=== PATIENT | male | born 1990 | race Caucasian/White ===

== ENCOUNTER 2016-04-03 16:55 | Inpatient (IN) | payer OTHER ==
[~2016-04-03] VITALS: Ht 182.9 cm; Wt 72.6 kg
--- NOTE | ~2016-04-03 | PR ---
[place], [place] PROGRESS NOTE NAME: SIDRA DEVLIN UNIT #: [id number] ROOM: 502 DOCTOR: EL MEIER MD BIRTHDATE: [birth year] DOS: 04/05/2016 SUBJECTIVE: The patient was seen at his bedside in the Intensive Care Unit on 04/05/2016. He was sleeping and lying flat. He still states that he is still feeling very achy, but things seem to be improving. His renal function certainly are improving. An echocardiogram done on 04/04/2016 showed normal left ventricular size with mild global left ventricular hypokinesis, left ventricular systolic function was mildly decreased with an ejection fraction of about 45-50%. The left ventricular filling pattern was normal for the patient's age. The right atrium and right ventricle were dilated with a right ventricular hypokinesis. Mild tricuspid insufficiency was seen. Right ventricular systolic pressures were elevated between 40 and 45 mmHg. The IVC was dilated with decreased respiratory variation indicating elevated central venous pressures. PHYSICAL EXAMINATION: VITAL SIGNS: He is arousable, but lethargic, pulse is 61 and regular, blood pressure is 142/68. He is afebrile, but he did have a temperature of 100.3 earlier. He weighs 72.6 kilograms with a body mass index 21.7. NECK: Supple. He has no jugular distention today. Carotids are full. LUNGS: Respirations are unlabored. His chest has decreased breath sounds at the bases. HEART: Regular rhythm with a fourth heart sound, but no third heart sound. ABDOMEN: Soft and normoactive. EXTREMITIES: Showed no edema. Muscles are tender to palpation. IMPRESSION: 1. Acute drug intoxication, most likely due to a combination of alcohol, marijuana and cocaine. 2. Rhabdomyolysis due to prolonged immobility after the patient lost consciousness. 3. Pneumonia due to aspiration. 4. Elevated troponin levels due to cocaine-induced myocardial injury. 5. Decreased left ventricular systolic function, likely due to cocaine-induced cardiac injury. PLAN: We will continue supportive care. We must avoid beta blockers since he does have a history of cocaine exposure. For now, we will continue to observe him without any medical management, but if his left ventricular function continues to deteriorate and if he remains free of drugs, we can consider starting beta blockers and DEBORA inhibitors in the future. We thank the hospitalist physicians for asking our advice regarding his care. [place], [place] PROGRESS NOTE NAME: SIDRA DEVLIN UNIT #: [id number] ROOM: 502 DOCTOR: EL MEIER MD BIRTHDATE: [birth year] EL MEIER MD CM:PNTRANS 37 EL MEIER MD 04/05/161937 interface
--- NOTE | ~2016-04-03 | CON ---
[place], [place] REPORT OF CONSULTATION NAME: SIDRA DEVLIN UNIT #: [id number] ROOM: [place] [address] DOCTOR: EL MEIER MD BIRTHDATE: [birth year] DOS: 04/04/2016 CARDIOLOGY CONSULTATION REASON FOR CONSULTATION: Elevated troponin level. HISTORY OF PRESENT ILLNESS: The patient is a 25-year-old man who does have a history of multiple drug abuse. He was brought into the hospital by family after he spent the night at a friend's house on . He reportedly became significantly intoxicated and blacked out. He also does admit to consuming "a lot" of cocaine. At his sister's home, he complained of total body pain especially involving his head and right ear. He had a lump on the back of his head. The patient could not recall any of the details of the night after midnight. In the hospital, a CAT scan of the chest did show a right lower lobe pneumonia, a head CT showed no intracranial process, a maxillofacial CT showed no fractures, a CT of the cervical spine showed no acute process. His toxicology report was positive for cocaine and cannabinoid metabolites. He was negative for barbiturates, opioids, and alcohol. Laboratory studies did show a marked elevation in CPK, which has continued to decline since his admission. On admission, the CPK was 15,175, this morning it is 24,486. Troponin levels have also been high. On admission, it was 1.050, today it is 3.310. The patient's blood work does also indicate signs of malnutrition with an albumin level of 2.9. He does show poor tissue perfusion with a lactic acid level of 2.4. Creatinine on admission was elevated at 2.16, but has improved to 1.31. PAST MEDICAL HISTORY: Includes, 1. History of multiple drug abuse. 2. No previous history of heart attack, stroke, diabetes, myocardial infarction, elevated lipids, or heart murmur. 3. The patient had a tonsillectomy and had myringotomy tubes placed twice. REVIEW OF SYSTEMS: The patient denies diplopia or loss of vision. He does admit to total body myalgias. He denies any focal weakness. He denies any loss of vision. He did have nausea and vomiting prior to admission. He denies fevers or chills. He denies any recent weight change. He denies any hot or swollen joints. He denies polydipsia or polyuria. He denies heat or cold intolerance. He denies bleeding from any site. He denies any change in his urine. He denies any blood in his stools. He denies any change in bowel or bladder habits. He denies any peripheral edema. The remainder of the review of systems is negative except as noted above. FAMILY HISTORY: Positive for hypertension. SOCIAL HISTORY: The patient lives with his sister. He does have a history of heroin use, but has been clean for several months. He does smoke and drink alcohol. PHYSICAL EXAMINATION: GENERAL: The patient is a slender white male who is awake, alert and oriented. He does appear to be uncomfortable. [place], [place] REPORT OF CONSULTATION NAME: SIDRA DEVLIN UNIT #: [id number] ROOM: [place] [address] DOCTOR: EL MEIER MD BIRTHDATE: [birth year] VITAL SIGNS: Pulse is 86 and regular, blood pressure is 110/60. He is afebrile. HEENT: Normocephalic, atraumatic. Extraocular muscles are intact. Sclerae are clear. Pupils are equal, round and reactive to light. The oral mucosa is moist. Tongue is midline. NECK: Supple. He has no jugular distention. Carotids are full. I heard no bruits. He had no neck or supraclavicular masses. LUNGS: Respirations are unlabored. He does have crackles at the right base. His chest is tender to palpation diffusely. He has no presacral edema. CARDIOVASCULAR: His heart has a regular rhythm with a fourth heart sound, but no third heart sound or murmur. The PMI is not displaced. He does have mild hepatojugular reflux. ABDOMEN: Soft and normally active without masses, organomegaly, bruits or tenderness. EXTREMITIES: Showed no edema. Peripheral pulses are palpable in the feet. LABORATORY DATA: I reviewed his electrocardiogram, which shows sinus rhythm and is a normal tracing. There are no acute ST or T-wave changes. IMPRESSION: 1. Presentation with acute drug intoxication, most likely due to a combination of alcohol, marijuana, and cocaine. 2. Rhabdomyolysis, possibly due to prolonged immobility after the patient lost consciousness. 3. Pneumonia, most likely due to aspiration. 4. Elevated troponin levels, probably due to cocaine-induced myocardial injury. Thus far, the patient does not show any signs of arrhythmias; however, he does have elevated jugular venous pressures suggesting that he may have some degree of cardiac dysfunction. PLAN: For now, we will continue supportive care. We will check an echocardiogram for left ventricular function. We will avoid beta blockers. The patient was strongly encouraged to avoid illegal drugs, especially cocaine. [facility] and I thank the hospitalist physicians for asking our advice regarding his care. EL MEIER MD CM:CONSTR:REPORT OF CONSULTATION 1018 04/04/16 1811 interface
--- NOTE | ~2016-04-03 | CON ---
[place], [place] REPORT OF CONSULTATION NAME: SIDRA DEVLIN UNIT #: [id number] ROOM: [place] [address] DOCTOR: NGUYEN CALDERON MD BIRTHDATE: [birth year] DOS: 04/04/2016 REASON FOR CONSULTATION: Acute kidney injury. HISTORY OF PRESENT ILLNESS: The patient is a 25-year-old male. He presented to the hospital following a fall. Apparently, he was drinking and he was down for quite some time. He believes he hit his head because he had some pain in the back of his neck and back area. The patient does not appear to have any past medical history from what I can gather. He does have a history of drug abuse in the past according to the notes. When he presented, he had some abnormal laboratory data that included a creatinine of 2.2. Potassium 6.4. He also had a white count that was elevated at 19,000 and alcohol level was negative. A tox screen was positive for cocaine and cannabinoids and the lactic acid was elevated as well at 4.6. He also had a CK level that was over 15,000. He was started on IV fluids and admitted to the Intensive Care Unit. I was called this morning, but the patient's labs gave instructions to recheck labs and give Kayexalate as his potassium was over 5.8. His creatinine actually has improved and he was urinating quite a bit. His creatinine this morning was 1.3. His last CK level was 21,182. It seems his peak was nearly 25,000. The patient actually was asking me if he can go home soon. He denied having any kidney issues. Denied chronic kidney disease, nausea, vomiting or diarrhea presently. He does have some muscle aches and pain still. ALLERGIES: Listed to RED DYE. MEDICATIONS: None. PAST MEDICAL HISTORY: Tobacco and opioid abuse. Ear tube placement, tonsillectomy and adenoidectomy. FAMILY HISTORY: Positive for hypertension, otherwise noncontributory. SOCIAL HISTORY: Does have a history of alcohol and illicit drugs and smoking. REVIEW OF SYSTEMS: As per HPI, otherwise a 10-point review of systems was reviewed and was negative. PHYSICAL EXAMINATION: VITAL SIGNS: His temperature 99.7, pulse 86, respirations 19, and blood pressure 110/60. GENERAL: He is alert, awake, oriented x 3, no acute distress. HEENT: Shows no jugular venous distention. Sclerae are anicteric. Mucous membranes are moist. Pharynx is clear. NECK: Supple. Trachea is midline. There is no neck lymphadenopathy. There is no thyromegaly. LUNGS: Clear. No crackles, wheezes or rales. No tactile fremitus. He is not using accessory muscles of respiration. HEART: Normal S1, S2. No rub, no thrill or gallop. ABDOMEN: Soft and nontender. There is no organomegaly or rigidity. There is no rebound or guarding. There is no CVA tenderness. [place], [place] REPORT OF CONSULTATION NAME: SIDRA DEVLIN UNIT #: [id number] ROOM: [place] [address] DOCTOR: NGUYEN CALDERON MD BIRTHDATE: [birth year] EXTREMITIES: Had no edema. There is no lower extremity lymphadenopathy. Distal pulses are 2+. SKIN: Showed no rash. There is no petechiae or purpura. Skin temperature was warm. NEUROLOGICAL: He is awake, alert, and following commands. Cranial nerves intact. DIAGNOSTIC DATA: Hemoglobin 12.9, white count of 15.3, platelets of 116, last CK of 21,642, hemoglobin 12.9, white count of 15.3, platelets 116. Magnesium 2.3, BUN 24, creatinine 1.3, calcium 7.5, albumin of 2.9, carbon dioxide 24, potassium 4.2, sodium 140. Troponin I was noted to be 3.09. Lactic acid was within normal limits. IMAGING: CT scan was noted without contrast showed no acute findings. There was comment of fluffy alveolar airspace disease in the right lung. ASSESSMENT AND PLAN: 1. Acute kidney injury with an unclear baseline creatinine. The patient may have acute kidney injury related to prerenal factors with possible element of rhabdomyolysis induced acute tubular necrosis, although his creatinine is improving with volume. 2. Hyperkalemia, which is improving. 3. Possible aspiration pneumonia. 4. Rhabdomyolysis, likely multifactorial etiology, which may be related to cocaine and recent fall with prolonged downtime in the setting of alcohol consumption. 5. Elevated LFTs. 6. Elevated troponin, which may be related to recent cocaine use. 7. History of substance abuse. PLAN: 1. Continue IV fluids. Consider bicarbonate drip if the patient's CK levels do not show improvement. He does not have an acidosis, however, this can be considered to alkalinize the urine; however, if this is chosen, please avoid metabolic alkalosis. For now normal saline is sufficient. 2. Continue to trend labs. Recheck CK level, BUN, creatinine, and potassium levels. Check a phosphorus level. 3. Dose meds for current creatinine clearance. 4. Antibiotics per the primary service. 5. Continue ongoing supportive care. Thank you for this consultation. We will follow with you. [place], [place] REPORT OF CONSULTATION NAME: SIDRA DEVLIN UNIT #: [id number] ROOM: [place] [address] DOCTOR: NGUYEN CALDERON MD BIRTHDATE: [birth year] NGUYEN CALDERON MD CM:CONSTR:REPORT OF CONSULTATION 1449 04/05/16 0107 interface
[~2016-04-03 16:55] MED LIST: ATARAX,VISTARIL50 MG PO; FLEXERIL10 MG PO; HYDROCODONE BIT1 T11 PO; KEFLEX500 MG PO; MOTRIN800 MG PO; NKHM; ONDANSETRON HYDR4 M1 PO; SINEMET 25-100M1 TAB PO; VICODIN 5/500 505 MG PO; ZOFRAN4 MG PO
[2016-04-03 17:05] VITALS: BP 96/48
[2016-04-03 18:13] LABS: BASO % 0.1 % (0.0-1.0); HEMATOCRIT 46.3 % (42.0-52.0); HEMOGLOBIN 15.5 g/dl (14.0-18.0); IG # 0.1 10*3/uL (0.0-0.1); LYMPH # 0.9 10*3/uL (1.3-4.4); LYMPH % 4.9 % (27.0-41.0); MEAN CELL VOLUME 93.5 fl (80.0-94.0); MEAN CORPUSCULAR HGB 31.3 pg (27.0-31.0); MEAN CORPUSCULAR HGB CONC 33.5 g/dl (33.0-37.0); MEAN PLATELET VOLUME 11.2 fl (9.6-12.3); MONO # 1.5 10*3/uL (0.1-1.0); MONO % 7.7 % (3.0-9.0); NEUT # 16.4 10*3/uL (2.3-7.9); NEUT % 86.7 % (47.0-73.0); PLATELET COUNT AUTOMATED 178 10*3/uL (130-400); RED BLOOD COUNT 4.95 10*6/uL (4.50-5.90); RED CELL DISTRI WIDTH 12.7 % (0-14.5); WHITE BLOOD COUNT 18.9 10*3/uL (4.8-10.8)
[2016-04-03 18:23] LABS: PROTHROMBIN TIME 10.8 SECONDS (9.0-12.4)
[2016-04-03 18:29] LABS: ALBUMIN 4.3 gm/dl (3.1-4.5); BILIRUBIN, TOTAL 0.6 mg/dl (0.2-1.0); TOTAL PROTEIN 7.6 gm/dL (6.4-8.2)
[2016-04-03 18:32] LABS: POTASSIUM 6.4 mmol/L (3.5-5.1)
[2016-04-03 18:45] VITALS: BP 110/64
[2016-04-03 19:14] LABS: BILIRUBIN 1+ (NEGATIVE); BLOOD 3+ (NEGATIVE); CLARITY CLOUDY (CLEAR); COLOR YELLOW (YELLOW); GLUCOSE NEGATIVE (NEGATIVE); KETONE NEGATIVE (NEGATIVE); LEUKO ESTERASE NEGATIVE (NEGATIVE); NITRITE NEGATIVE (NEGATIVE); PROTEIN 2+ (NEGATIVE); SPECIFIC GRAVITY >= 1.030 (1.005-1.030); UROBILINOGEN 0.2 E.U./dl (0.2-1.0)
[2016-04-03 19:23] LABS: URINE AMPHETAMINES < 1000 (1000ng/ml); URINE BARBITURATES < 200 (200ng/ml); URINE COCAINE > 300 (300ng/ml)
[2016-04-03 19:30] VITALS: BP 103/64
[2016-04-03 19:46] LABS: BACTERIA 4+; RBC 21-30 rbc/hpf (0-2); URINE REFLEX COMMENT YES (NO)
[2016-04-03 20:00] VITALS: BP 110/64
[2016-04-03 20:30] VITALS: BP 90/60
[2016-04-03 20:32] LABS: CKMB 123.4 ng/ml (0.5-3.6)
[2016-04-03 20:42] LABS: CPK 15175 U/L (39-308)
[2016-04-03 20:44] LABS: MYOGLOBIN > 20000.0 ng/ml (16-116)
[2016-04-03 21:41] LABS: LA>2 REFLEX 2 HR DRAW NOW
[2016-04-03 22:08] LABS: LA>2 RFLX FOLLOW UP AT 2 HRS 2.4 mmol/L (0.4-2.0)
[2016-04-03 23:00] VITALS: BP 105/55
[2016-04-04] VITALS: BP 109/62
[2016-04-04] LABS: LA>2 REFLEX 4 HR DRAW NOW
[2016-04-04 00:57] LABS: CKMB 168.3 ng/ml (0.5-3.6)
[2016-04-04 04:00] VITALS: BP 119/56; BP 137/56
[2016-04-04 06:27] LABS: BASO % 0.1 % (0.0-1.0); EOS % 0.1 % (1.0-4.0); IG # 0.1 10*3/uL (0.0-0.1); LYMPH % 13.2 % (27.0-41.0); MEAN CELL VOLUME 90.6 fl (80.0-94.0); MEAN CORPUSCULAR HGB 31.9 pg (27.0-31.0); MEAN CORPUSCULAR HGB CONC 35.1 g/dl (33.0-37.0); MEAN PLATELET VOLUME 11.7 fl (9.6-12.3); MONO # 1.1 10*3/uL (0.1-1.0); MONO % 7.1 % (3.0-9.0); NEUT # 12.1 10*3/uL (2.3-7.9); NEUT % 78.7 % (47.0-73.0); RED BLOOD COUNT 4.05 10*6/uL (4.50-5.90); RED CELL DISTRI WIDTH 12.9 % (0-14.5); WHITE BLOOD COUNT 15.3 10*3/uL (4.8-10.8)
[2016-04-04 06:28] LABS: INTERNATIONAL NORM RATIO 1.3 (2.0-3.5); PROTHROMBIN TIME 13.5 SECONDS (9.0-12.4)
[2016-04-04 06:30] LABS: ALBUMIN 2.9 gm/dl (3.1-4.5); ALKALINE PHOSPHATASE 42 U/L (45-117); BILIRUBIN, TOTAL 0.6 mg/dl (0.2-1.0); BUN 24 mg/dl (7-24); CARBON DIOXIDE 24 mmol/L (21-32); CHLORIDE 106 mmol/L (98-107); EST GLOM FILT AFRICAN AMERICAN > 60 ml/min; GLUCOSE 100 mg/dL (65-99); SGOT/AST 572 IU/L (3-35); SGPT/ALT 238 U/L (12-78); SODIUM 140 mmol/L (136-145); TOTAL PROTEIN 5.6 gm/dL (6.4-8.2)
[2016-04-04 06:37] LABS: MAGNESIUM 2.3 mg/dL (1.5-2.1)
[2016-04-04 06:40] LABS: POTASSIUM 4.2 mmol/L (3.5-5.1)
[2016-04-04 06:51] LABS: CKMB 155.2 ng/ml (0.5-3.6)
[2016-04-04 07:01] LABS: HEMATOCRIT 36.7 % (42.0-52.0); HEMOGLOBIN 12.9 g/dl (14.0-18.0); PLATELET COUNT AUTOMATED 116 10*3/uL (130-400)
[2016-04-04 07:04] LABS: HEMOGLOBIN A1c 4.7 % (4.8-5.6)
[2016-04-04 07:55] VITALS: BP 110/60
[2016-04-04 13:19] LABS: CKMB 112.8 ng/ml (0.5-3.6)
[2016-04-04 16:00] VITALS: BP 131/70
[2016-04-04 20:00] VITALS: BP 129/66
[2016-04-05] VITALS: BP 111/66
[2016-04-05 04:00] VITALS: BP 142/68
[2016-04-05 06:01] LABS: ALBUMIN 2.9 gm/dl (3.1-4.5); ALKALINE PHOSPHATASE 46 U/L (45-117); BILIRUBIN, TOTAL 0.6 mg/dl (0.2-1.0); CARBON DIOXIDE 26 mmol/L (21-32); CHLORIDE 112 mmol/L (98-107); EST GLOM FILT AFRICAN AMERICAN > 60 ml/min; GLUCOSE 90 mg/dL (65-99); POTASSIUM 4.1 mmol/L (3.5-5.1); SGOT/AST 608 IU/L (3-35); SGPT/ALT 251 U/L (12-78); SODIUM 145 mmol/L (136-145); TOTAL PROTEIN 5.5 gm/dL (6.4-8.2)
[2016-04-05 06:02] LABS: BUN 9 mg/dl (7-24)
[2016-04-05 06:08] LABS: BASO % 0.2 % (0.0-1.0); EOS # 0.1 10*3/uL (0.0-0.4); EOS % 0.5 % (1.0-4.0); HEMATOCRIT 36.7 % (42.0-52.0); HEMOGLOBIN 12.7 g/dl (14.0-18.0); LYMPH # 2.6 10*3/uL (1.3-4.4); LYMPH % 25.2 % (27.0-41.0); MEAN CELL VOLUME 91.3 fl (80.0-94.0); MEAN CORPUSCULAR HGB 31.6 pg (27.0-31.0); MEAN CORPUSCULAR HGB CONC 34.6 g/dl (33.0-37.0); MEAN PLATELET VOLUME 12.2 fl (9.6-12.3); MONO # 0.8 10*3/uL (0.1-1.0); MONO % 7.7 % (3.0-9.0); NEUT # 6.8 10*3/uL (2.3-7.9); NEUT % 66.1 % (47.0-73.0); PLATELET COUNT AUTOMATED 102 10*3/uL (130-400); RED BLOOD COUNT 4.02 10*6/uL (4.50-5.90); RED CELL DISTRI WIDTH 13.1 % (0-14.5); WHITE BLOOD COUNT 10.3 10*3/uL (4.8-10.8)
[2016-04-05 08:33] LABS: CKMB 24.2 ng/ml (0.5-3.6)
[2016-04-05 12:00] VITALS: BP 142/68
[2016-04-05 15:55] VITALS: BP 111/56
[2016-04-05 20:00] VITALS: BP 112/67
[2016-04-06] VITALS: BP 119/62
[2016-04-06 06:02] LABS: BASO % 0.3 % (0.0-1.0); EOS # 0.1 10*3/uL (0.0-0.4); EOS % 1.2 % (1.0-4.0); HEMATOCRIT 34.6 % (42.0-52.0); HEMOGLOBIN 12.2 g/dl (14.0-18.0); LYMPH # 2.1 10*3/uL (1.3-4.4); LYMPH % 28.1 % (27.0-41.0); MEAN CELL VOLUME 89.9 fl (80.0-94.0); MEAN CORPUSCULAR HGB 31.7 pg (27.0-31.0); MEAN CORPUSCULAR HGB CONC 35.3 g/dl (33.0-37.0); MEAN PLATELET VOLUME 11.9 fl (9.6-12.3); MONO # 0.5 10*3/uL (0.1-1.0); MONO % 6.6 % (3.0-9.0); NEUT # 4.7 10*3/uL (2.3-7.9); NEUT % 63.5 % (47.0-73.0); PLATELET COUNT AUTOMATED 101 10*3/uL (130-400); RED BLOOD COUNT 3.85 10*6/uL (4.50-5.90); RED CELL DISTRI WIDTH 12.6 % (0-14.5); WHITE BLOOD COUNT 7.4 10*3/uL (4.8-10.8)
[2016-04-06 06:12] LABS: ALBUMIN 2.7 gm/dl (3.1-4.5); ALKALINE PHOSPHATASE 36 U/L (45-117); BILIRUBIN, TOTAL 0.9 mg/dl (0.2-1.0); BUN 10 mg/dl (7-24); CARBON DIOXIDE 25 mmol/L (21-32); CHLORIDE 109 mmol/L (98-107); EST GLOM FILT AFRICAN AMERICAN > 60 ml/min; GLUCOSE 86 mg/dL (65-99); SGOT/AST 507 IU/L (3-35); SGPT/ALT 201 U/L (12-78); SODIUM 144 mmol/L (136-145); TOTAL PROTEIN 5.3 gm/dL (6.4-8.2)
[2016-04-06 06:15] LABS: CKMB 8.6 ng/ml (0.5-3.6)
[2016-04-06 07:36] LABS: HEPATITIS C VIRUS ANTIBODY >11.0 s/co (0.0-0.9)
[2016-04-06 08:00] VITALS: BP 126/80
[2016-04-06 12:00] VITALS: BP 122/68
[2016-04-06 14:58] LABS: FOLIC ACID 8.87 ng/mL (>5.38)
[2016-04-06 16:00] VITALS: BP 118/72
[2016-04-06 20:00] VITALS: BP 126/74
[2016-04-07] VITALS: BP 99/65
[2016-04-07 06:26] LABS: BASO % 0.5 % (0.0-1.0); EOS # 0.2 10*3/uL (0.0-0.4); EOS % 2.4 % (1.0-4.0); HEMATOCRIT 38.8 % (42.0-52.0); HEMOGLOBIN 13.6 g/dl (14.0-18.0); LYMPH # 2.5 10*3/uL (1.3-4.4); LYMPH % 37.4 % (27.0-41.0); MEAN CELL VOLUME 89.2 fl (80.0-94.0); MEAN CORPUSCULAR HGB 31.3 pg (27.0-31.0); MEAN CORPUSCULAR HGB CONC 35.1 g/dl (33.0-37.0); MEAN PLATELET VOLUME 11.6 fl (9.6-12.3); MONO # 0.4 10*3/uL (0.1-1.0); MONO % 6.1 % (3.0-9.0); NEUT # 3.5 10*3/uL (2.3-7.9); NEUT % 53.3 % (47.0-73.0); PLATELET COUNT AUTOMATED 131 10*3/uL (130-400); RED BLOOD COUNT 4.35 10*6/uL (4.50-5.90); RED CELL DISTRI WIDTH 12.4 % (0-14.5); WHITE BLOOD COUNT 6.6 10*3/uL (4.8-10.8)
[2016-04-07 06:52] LABS: BUN 9 mg/dl (7-24); CARBON DIOXIDE 26 mmol/L (21-32); CHLORIDE 108 mmol/L (98-107); EST GLOM FILT AFRICAN AMERICAN > 60 ml/min; GLUCOSE 77 mg/dL (65-99); POTASSIUM 3.6 mmol/L (3.5-5.1); SODIUM 143 mmol/L (136-145)
[2016-04-07 06:54] LABS: CPK 6744 U/L (39-308)
[2016-04-07 08:01] VITALS: BP 108/54
== END 2016-04-07 12:37 | disposition home or self-care (01) | DRG 871 ==
LOC: ED 16:55 → 5E 20:41 → EDHOLD 20:41 → ICCU 20:41 → 5E 04-05 18:43
PROVIDERS: Emergency Medicine; Hospitalist; Internal Medicine; Physician Assistant
DX: A41.9 Sepsis, unspecified organism (principal); N17.0 Acute kidney failure with tubular necrosis; J69.0 Pneumonitis due to inhalation of food and vomit; S09.90XA Unspecified injury of head, initial encounter; I27.2 Other secondary pulmonary hypertension; E43 Unspecified severe protein-calorie malnutrition; E86.0 Dehydration; R65.20 Severe sepsis without septic shock; T79.6XXA Traumatic ischemia of muscle, initial encounter; F17.210 Nicotine dependence, cigarettes, uncomplicated; E87.5 Hyperkalemia; F14.10 Cocaine abuse, uncomplicated; X58.XXXA Exposure to other specified factors, initial encounter; J02.9 Acute pharyngitis, unspecified; F12.10 Cannabis abuse, uncomplicated; I25.5 Ischemic cardiomyopathy; B19.20 Unspecified viral hepatitis C without hepatic coma; Z68.21 Body mass index [BMI] 21.0-21.9, adult; Y93.9 Activity, unspecified; Y92.9 Unspecified place or not applicable; Z91.041 Radiographic dye allergy status; Z98.890 Other specified postprocedural states; Z82.49 Family history of ischemic heart disease and other diseases of the circulatory system

== ENCOUNTER 2016-06-20 20:48 | Emergency (ER) | payer OTHER ==
[~2016-06-20] VITALS: Ht 182.8 cm; Wt 72.6 kg
[2016-06-20 21:08] LABS: BASO % 0.3 % (0.0-1.0); EOS # 0.1 10*3/uL (0.0-0.4); EOS % 1.3 % (1.0-4.0); HEMATOCRIT 41.1 % (42.0-52.0); HEMOGLOBIN 14.3 g/dl (14.0-18.0); LYMPH # 1.7 10*3/uL (1.3-4.4); LYMPH % 20.8 % (27.0-41.0); MEAN CELL VOLUME 89.5 fl (80.0-94.0); MEAN CORPUSCULAR HGB 31.2 pg (27.0-31.0); MEAN CORPUSCULAR HGB CONC 34.8 g/dl (33.0-37.0); MEAN PLATELET VOLUME 11.5 fl (9.6-12.3); MONO # 0.3 10*3/uL (0.1-1.0); MONO % 4.3 % (3.0-9.0); NEUT # 5.8 10*3/uL (2.3-7.9); PLATELET COUNT AUTOMATED 142 10*3/uL (130-400); RED BLOOD COUNT 4.59 10*6/uL (4.50-5.90); RED CELL DISTRI WIDTH 11.9 % (0-14.5)
[2016-06-20 21:31] LABS: BUN 8 mg/dl (7-24); CARBON DIOXIDE 25 mmol/L (21-32); CHLORIDE 109 mmol/L (98-107); EST GLOM FILT AFRICAN AMERICAN > 60 ml/min; GLUCOSE 170 mg/dL (65-99); POTASSIUM 3.7 mmol/L (3.5-5.1); SODIUM 144 mmol/L (136-145)
[2016-06-20 21:32] LABS: TROPONIN I < 0.015 ng/ml (<0.045)
== END 2016-06-20 22:39 | disposition home or self-care (01) ==
LOC: ED 20:48
PROVIDERS: Emergency Medicine Emergency Medical Services
DX: T40.2X1A Poisoning by other opioids, accidental (unintentional), initial encounter (principal); F11.10 Opioid abuse, uncomplicated; F17.200 Nicotine dependence, unspecified, uncomplicated; F12.10 Cannabis abuse, uncomplicated; I27.2 Other secondary pulmonary hypertension; Z90.89 Acquired absence of other organs; Z91.041 Radiographic dye allergy status; Y92.9 Unspecified place or not applicable

== ENCOUNTER 2019-01-14 12:30 | Emergency (ER) | payer OTHER ==
[~2019-01-14] VITALS: Ht 182.8 cm; Wt 79.4 kg
[2019-01-14] MEDS ORDERED: IBU800 M1 PO (14:32)
[2019-01-14] MEDS ORDERED: ROBAXIN-750750 MG PO (14:32)
[2019-03-17] MEDS ORDERED: AMOXICILLIN500 M3 PO (19:36)
[2019-03-17] MEDS ORDERED: ALLEGRA-D 24 H1 EACH PO (19:36)
[2019-03-17] MEDS ORDERED: TYLOPHEN500 M2 PO (19:39)
[2019-03-17] MEDS ORDERED: PROAIR HFA8.5 GM INH (19:39)
== END 2019-01-14 14:45 | disposition home or self-care (01) ==
LOC: ED 12:30
DX: S30.0XXA Contusion of lower back and pelvis, initial encounter (principal); F17.200 Nicotine dependence, unspecified, uncomplicated; Z91.041 Radiographic dye allergy status; W10.8XXA Fall (on) (from) other stairs and steps, initial encounter; Y93.89 Activity, other specified; Y92.89 Other specified places as the place of occurrence of the external cause; Y99.8 Other external cause status

== ENCOUNTER 2019-02-14 14:21 | Emergency (ER) | payer OTHER ==
[~2019-02-14] VITALS: Ht 182.8 cm; Wt 77.1 kg
[~2019-02-14 14:21] MED LIST changes: +IBU800 M1 PO; +ROBAXIN-750750 MG PO
[2019-02-14] MEDS ORDERED: Motrin,Rufen800 MG PO (17:10)
== END 2019-02-14 17:20 | disposition home or self-care (01) ==
LOC: ED 14:21
DX: S62.316A Displaced fracture of base of fifth metacarpal bone, right hand, initial encounter for closed fracture (principal); F17.200 Nicotine dependence, unspecified, uncomplicated; Z91.041 Radiographic dye allergy status; Z79.899 Other long term (current) drug therapy; W22.8XXA Striking against or struck by other objects, initial encounter; Y93.89 Activity, other specified; Y92.69 Other specified industrial and construction area as the place of occurrence of the external cause; Y99.0 Civilian activity done for income or pay

== ENCOUNTER 2021-12-14 18:02 | Emergency (ER) | payer OTHER ==
[~2021-12-14 18:02] MED LIST changes: +ALLEGRA-D 24 H1 EACH PO; +AMOXICILLIN500 M3 PO; +Motrin,Rufen800 MG PO; +PROAIR HFA8.5 GM INH; +TYLOPHEN500 M2 PO
[2021-12-14 20:27] LABS: BILIRUBIN Negative (Negative); BLOOD Trace-Lysed (Negative); CLARITY Cloudy (Clear); COLOR Yellow (Yellow); GLUCOSE Negative (Negative); KETONE Negative (Negative); LEUKO ESTERASE 3+ (Negative); NITRITE Negative (Negative); PH 7.5 (4.5-8.0); SPECIFIC GRAVITY <= 1.005 (1.001-1.030); UROBILINOGEN 0.2 E.U./dl (0.0-1.0)
[2021-12-14 20:41] LABS: BACTERIA 1+; WBC TNTC wbc/hpf (0-5)
[2021-12-14] MEDS ORDERED: CEPHALEXIN500 M1 PO (22:57)
== END 2021-12-14 23:26 | disposition home or self-care (01) ==
LOC: ED 18:02
PROVIDERS: Emergency Medicine
DX: N39.0 Urinary tract infection, site not specified (principal); Z20.2 Contact with and (suspected) exposure to infections with a predominantly sexual mode of transmission; Z91.041 Radiographic dye allergy status; Z87.891 Personal history of nicotine dependence

== ENCOUNTER 2022-03-03 16:22 | Emergency (ER) | payer OTHER ==
[~2022-03-03] VITALS: Wt 79.4 kg
[~2022-03-03 16:22] MED LIST changes: +CEPHALEXIN500 M1 PO
[2022-03-03] MEDS ORDERED: VIBRAMYCIN100 MG PO (18:04)
[2022-03-03 19:17] LABS: BILIRUBIN Negative (Negative); BLOOD Trace-Intact (Negative); CLARITY Cloudy (Clear); COLOR Dark Yellow (Yellow); GLUCOSE Negative (Negative); KETONE Trace (Negative); LEUKO ESTERASE 2+ (Negative); NITRITE Negative (Negative); PH 5.5 (4.5-8.0); SPECIFIC GRAVITY 1.025 (1.001-1.030)
== END 2022-03-03 18:53 | disposition home or self-care (01) ==
LOC: ED 16:22
PROVIDERS: Emergency Medicine
DX: A64 Unspecified sexually transmitted disease (principal); F17.200 Nicotine dependence, unspecified, uncomplicated; Z90.89 Acquired absence of other organs

== ENCOUNTER 2022-05-22 20:19 | Emergency (ER) | payer OTHER ==
[~2022-05-22] VITALS: Ht 182.8 cm; Wt 77.1 kg
[~2022-05-22 20:19] MED LIST changes: +VIBRAMYCIN100 MG PO
[2022-05-22] MEDS ORDERED: PREDNISONE20 M1 PO ×2 (22:09→22:47)
[2022-05-22] MEDS ORDERED: CLINDAMYCIN HC300 MG PO ×2 (22:09→22:47)
[2022-05-22 22:24] LABS: BASO % 0.2 % (0.0-1.0); EOS # 0.1 10*3/uL (0.0-0.4); EOS % 0.5 % (1.0-4.0); HEMATOCRIT 43.4 % (42.0-52.0); LYMPH # 2.8 10*3/uL (1.3-4.4); LYMPH % 29.8 % (27.0-41.0); MEAN CELL VOLUME 88.4 fl (80.0-94.0); MEAN CORPUSCULAR HGB 30.1 pg (27.0-31.0); MEAN CORPUSCULAR HGB CONC 34.1 g/dl (33.0-37.0); MONO # 0.8 10*3/uL (0.1-1.0); NEUT # 5.6 10*3/uL (2.3-7.9); NEUT % 60.2 % (47.0-73.0); PLATELET COUNT AUTOMATED 216 10*3/uL (130-400); RED BLOOD COUNT 4.91 10*6/uL (4.50-5.90); RED CELL DISTRI WIDTH 12.6 % (0-14.5); WHITE BLOOD COUNT 9.2 10*3/uL (4.8-10.8)
[2022-05-22] MEDS ORDERED: HYDROCODONE-AC1 EAC1 PO (22:45)
== END 2022-05-22 23:15 | disposition home or self-care (01) ==
LOC: ED 20:19
PROVIDERS: Physician Assistant
DX: I77.6 Arteritis, unspecified (principal); Z91.041 Radiographic dye allergy status; Z98.890 Other specified postprocedural states; Z90.89 Acquired absence of other organs; F17.200 Nicotine dependence, unspecified, uncomplicated

== ENCOUNTER 2022-07-05 10:17 | Emergency (ER) | payer OTHER ==
[~2022-07-05] VITALS: Ht 182.8 cm; Wt 77.1 kg
[~2022-07-05 10:17] MED LIST changes: +CLINDAMYCIN HC300 MG PO; +HYDROCODONE-AC1 EAC1 PO; +PREDNISONE20 M1 PO
== END 2022-07-05 11:04 | disposition home or self-care (01) ==
LOC: ED 10:17
DX: S93.401A Sprain of unspecified ligament of right ankle, initial encounter (principal); Z91.041 Radiographic dye allergy status; Z90.89 Acquired absence of other organs; Z98.890 Other specified postprocedural states; F17.200 Nicotine dependence, unspecified, uncomplicated; F14.10 Cocaine abuse, uncomplicated; F19.10 Other psychoactive substance abuse, uncomplicated; W10.9XXA Fall (on) (from) unspecified stairs and steps, initial encounter; Y93.89 Activity, other specified; Y92.89 Other specified places as the place of occurrence of the external cause; Y99.8 Other external cause status

== ENCOUNTER → 2022-08-10 | Outpatient (CLI) | payer OTHER ==
[2022-08-10 12:54] LABS: BILIRUBIN Negative (Negative); BLOOD Negative (Negative); CLARITY Clear (Clear); COLOR Yellow (Yellow); GLUCOSE Negative (Negative); KETONE Negative (Negative); LEUKO ESTERASE Negative (Negative); NITRITE Negative (Negative); SPECIFIC GRAVITY 1.015 (1.001-1.030); UROBILINOGEN 0.2 E.U./dl (0.0-1.0)
[2022-08-10 13:05] LABS: EPITHELIAL CELLS 0-2; RBC 0-2 rbc/hpf (0-2); WBC 0-2 wbc/hpf (0-5)
[2022-08-10 13:06] LABS: BACTERIA TRACE
[2022-08-11 08:11] LABS: HEPATITIS B SURFACE AB Non Reactive (.); HEPATITIS B SURFACE AG Negative (Negative)
[2022-08-11 13:06] LABS: ANTI-DSDNA ANTIBODIES <1 IU/mL (0-9); ANTI-RNP ANTIBODIES 3.8 AI (0.0-0.9); ANTICHROMATIN ANTIBODIES <0.2 AI (0.0-0.9); ANTISCLERODERMA-70 AB <0.2 AI (0.0-0.9); SJOGREN ANTI-SS-A <0.2 AI (0.0-0.9); SJOREN AB, ANTI-SS-B <0.2 AI (0.0-0.9)
[2022-08-11 16:08] LABS: ATYPICAL pANCA <1:20 titer (Neg:<1:20); CYTOPLASMIC (C-ANCA) <1:20 titer (Neg:<1:20); PERINUCLEAR (P-ANCA) <1:20 titer (Neg:<1:20)
[2022-08-12 20:07] LABS: ANTI MPO ANTIBODIES <0.2 units (0.0-0.9); ANTI PR3 ANTIBODIES <0.2 units (0.0-0.9)
== END | disposition home or self-care (01) ==
LOC: LAB 12:26
PROVIDERS: ATTEND Internal Medicine
DX: R21 Rash and other nonspecific skin eruption (principal)

== ENCOUNTER → 2022-08-18 | Outpatient (CLI) | payer OTHER | END | disposition home or self-care (01) | LOC: LAB 10:24 | PROVIDERS: ATTEND Internal Medicine | DX: Z20.2 Contact with and (suspected) exposure to infections with a predominantly sexual mode of transmission (principal) ==

== ENCOUNTER 2022-09-21 15:29 | Emergency (ER) | payer OTHER ==
[~2022-09-21] VITALS: Wt 79.4 kg
[2022-09-21] MEDS ORDERED: BUPROPION XL300 MG PO (15:55)
[2022-09-21] MEDS ORDERED: BUPRENORPHINE HY8 MG SL (15:55)
[2022-09-21] MEDS ORDERED: SEPTDS PO (17:30)
== END 2022-09-21 17:51 | disposition home or self-care (01) ==
LOC: ED 15:29
DX: L02.413 Cutaneous abscess of right upper limb (principal); Z91.041 Radiographic dye allergy status; Z98.890 Other specified postprocedural states; Z90.89 Acquired absence of other organs; F17.200 Nicotine dependence, unspecified, uncomplicated; F14.10 Cocaine abuse, uncomplicated

== ENCOUNTER 2022-09-23 14:43 | Emergency (ER) | payer OTHER ==
[~2022-09-23] VITALS: Ht 182.8 cm; Wt 79.4 kg
[~2022-09-23 14:43] MED LIST changes: +BUPRENORPHINE HY8 MG SL; +BUPROPION XL300 MG PO; +SEPTDS PO
== END 2022-09-23 15:14 | disposition home or self-care (01) ==
LOC: ED 14:43
DX: L02.413 Cutaneous abscess of right upper limb (principal); Z48.01 Encounter for change or removal of surgical wound dressing; F17.200 Nicotine dependence, unspecified, uncomplicated; Z91.041 Radiographic dye allergy status; Z88.2 Allergy status to sulfonamides; Z79.899 Other long term (current) drug therapy; Z90.89 Acquired absence of other organs

== ENCOUNTER 2022-11-30 05:31 | Emergency (ER) | payer OTHER ==
[~2022-11-30 05:31] MED LIST changes: +AMOX-CLAV 875-1 EACH PO
== END 2022-11-30 07:31 | disposition home or self-care (01) ==
LOC: ED 05:31
DX: T40.1X1A Poisoning by heroin, accidental (unintentional), initial encounter (principal); Z91.041 Radiographic dye allergy status; Z90.89 Acquired absence of other organs; Z98.890 Other specified postprocedural states; F17.200 Nicotine dependence, unspecified, uncomplicated; Y92.009 Unspecified place in unspecified non-institutional (private) residence as the place of occurrence of the external cause

== ENCOUNTER 2023-01-19 19:09 | Emergency (ER) | payer OTHER ==
[~2023-01-19] VITALS: Ht 182.8 cm; Wt 83.9 kg
[2023-01-19 19:34] LABS: BILIRUBIN Negative (Negative); BLOOD Negative (Negative); CLARITY Clear (Clear); COLOR Yellow (Yellow); GLUCOSE Negative (Negative); KETONE Negative (Negative); LEUKO ESTERASE Trace (Negative); NITRITE Negative (Negative); PH 6.5 (4.5-8.0); SPECIFIC GRAVITY <= 1.005 (1.001-1.030); UROBILINOGEN 0.2 E.U./dl (0.0-1.0)
[2023-01-19 19:43] LABS: BACTERIA TRACE; EPITHELIAL CELLS 0-2; RBC 0-2 rbc/hpf (0-2)
== END 2023-01-19 20:12 | disposition home or self-care (01) ==
LOC: ED 19:09
PROVIDERS: Nurse Practitioner Family
DX: A64 Unspecified sexually transmitted disease (principal); I10 Essential (primary) hypertension; Z91.041 Radiographic dye allergy status; F14.10 Cocaine abuse, uncomplicated; F17.200 Nicotine dependence, unspecified, uncomplicated; Z98.890 Other specified postprocedural states; Z90.89 Acquired absence of other organs

== ENCOUNTER 2023-08-24 22:48 | Emergency (ER) | payer MEDICAID | END 2023-08-24 22:58 | LOC: ED 22:48 | DX: Z02.89 Encounter for other administrative examinations (principal); Z53.29 Procedure and treatment not carried out because of patient's decision for other reasons; F17.200 Nicotine dependence, unspecified, uncomplicated; Z91.041 Radiographic dye allergy status; Z79.899 Other long term (current) drug therapy; Z90.89 Acquired absence of other organs; Z96.22 Myringotomy tube(s) status ==

== ENCOUNTER 2024-08-29 17:12 | Emergency (ER) | payer MEDICAID ==
[~2024-08-29] VITALS: Ht 182.8 cm; Wt 79.4 kg
[2024-08-29] MEDS ORDERED: Sulfamethoxazole/Trimethopri 1 TAB TAB PO ONE (17:40)
[2024-08-29] MEDS ORDERED: SEPTDS PO (17:41)
== END 2024-08-29 18:15 | disposition home or self-care (01) ==
LOC: ED 17:12
DX: L02.413 Cutaneous abscess of right upper limb (principal); Z79.899 Other long term (current) drug therapy; Z91.041 Radiographic dye allergy status; Z98.890 Other specified postprocedural states

== ENCOUNTER 2024-09-01 15:24 | Emergency (ER) | payer MEDICAID | END 2024-09-01 15:36 | disposition left against medical advice (07) | LOC: ED 15:24 | DX: F12.10 Cannabis abuse, uncomplicated (principal); Z91.048 Other nonmedicinal substance allergy status; Z79.899 Other long term (current) drug therapy; Z96.22 Myringotomy tube(s) status; Z87.891 Personal history of nicotine dependence; Z53.29 Procedure and treatment not carried out because of patient's decision for other reasons ==

== ENCOUNTER 2024-10-30 09:44 | Emergency (ER) | payer MEDICAID ==
[~2024-10-30] VITALS: Ht 182.8 cm; Wt 68.0 kg
[2024-10-30 10:00] LABS: BILIRUBIN Negative (Negative); BLOOD 3+ (Negative); CLARITY Clear (Clear); COLOR Orange (Yellow); KETONE Negative (Negative); LEUKO ESTERASE Trace (Negative); NITRITE Negative (Negative); PH 6.5 (4.5-8.0); SPECIFIC GRAVITY 1.015 (1.001-1.030); UROBILINOGEN 1.0 E.U./dl (0.0-1.0)
[2024-10-30 10:06] LABS: URINE AMPHETAMINES Negative (1000ng/ml); URINE BARBITURATES Negative (200ng/ml); URINE BENZODIAZEPINES Positive (200ng/ml); URINE CANNABINOIDS (THC) Positive (50ng/ml); URINE COCAINE Positive (300ng/ml); URINE METHADONE Negative (300ng/ml); URINE OPIATES Negative (300ng/ml); URINE PHENCYCLIDINE Negative (25ng/ml)
[2024-10-30 10:09] LABS: RBC TNTC rbc/hpf (0-2)
[2024-10-30 10:09] LABS: BASO # 0.0 10*3/uL (0.0-0.1); BASO % 0.3 % (0.0-1.0); EOS # 0.2 10*3/uL (0.0-0.4); EOS % 1.8 % (1.0-4.0); MEAN CELL VOLUME 88.7 fl (80.0-94.0); MEAN CORPUSCULAR HGB 28.9 pg (27.0-31.0); MEAN PLATELET VOLUME 10.8 fl (9.6-12.3); MONO # 0.6 10*3/uL (0.1-1.0); MONO % 5.7 % (3.0-9.0); NEUT # 6.4 10*3/uL (2.3-7.9); NEUT % 62.3 % (47.0-73.0); NUCLEATED RED BLOOD CELL 0.0 % (0.0-0.0); NUCLEATED RED BLOOD CELL 0.0 10*3/uL (0.0-0.0); PLATELET COUNT AUTOMATED 194 10*3/uL (130-400); RED CELL DISTRI WIDTH 12.8 % (0-14.5)
[2024-10-30 10:30] LABS: BUN 7 mg/dl (9-23); SGPT/ALT 38 U/L (5-49)
[2024-10-30 10:35] LABS: ETHYL ALCOHOL < 3.0 mg/dl (<3)
== END 2024-10-30 15:42 | disposition home or self-care (01) ==
LOC: ED 09:44
PROVIDERS: Internal Medicine
DX: T50.901A Poisoning by unspecified drugs, medicaments and biological substances, accidental (unintentional), initial encounter (principal); R40.4 Transient alteration of awareness; F19.10 Other psychoactive substance abuse, uncomplicated; F17.200 Nicotine dependence, unspecified, uncomplicated; Z91.041 Radiographic dye allergy status; Z79.899 Other long term (current) drug therapy; Z90.89 Acquired absence of other organs; Y92.89 Other specified places as the place of occurrence of the external cause

== ENCOUNTER 2024-12-08 03:41 | Emergency (ER) | payer SELFPAY | END 2024-12-08 04:08 | LOC: ED 03:41 | DX: T50.991A Poisoning by other drugs, medicaments and biological substances, accidental (unintentional), initial encounter (principal); F17.290 Nicotine dependence, other tobacco product, uncomplicated; Y92.89 Other specified places as the place of occurrence of the external cause ==

== ENCOUNTER 2025-03-30 11:41 | Emergency (ER) | payer OTHER ==
[~2025-03-30] VITALS: Ht 180.3 cm; Wt 77.1 kg
[2025-03-30 12:33] LABS: BILIRUBIN 1+ (Negative); BLOOD Negative (Negative); CLARITY Clear (Clear); COLOR Dark Yellow (Yellow); KETONE Trace (Negative); LEUKO ESTERASE Trace (Negative); NITRITE Negative (Negative); PH 5.5 (4.5-8.0); SPECIFIC GRAVITY >= 1.030 (1.001-1.030); UROBILINOGEN 1.0 E.U./dl (0.0-1.0)
[2025-03-30 12:44] LABS: BACTERIA 2+; MUCOUS 1+; RBC 0-2 rbc/hpf (0-2)
[2025-03-30] MEDS ORDERED: VIBRAMYCIN100 MG PO (12:56)
== END 2025-03-30 13:00 | disposition home or self-care (01) ==
LOC: ED 11:41
PROVIDERS: Student in an Organized Health Care Education/Training Program
DX: Z20.2 Contact with and (suspected) exposure to infections with a predominantly sexual mode of transmission (principal); F17.210 Nicotine dependence, cigarettes, uncomplicated; Z88.8 Allergy status to other drugs, medicaments and biological substances